=== PATIENT | female | born 1980 | race Caucasian/White ===

== ENCOUNTER 2016-07-18 17:11 | Emergency (ER) | payer OTHER ==
[~2016-07-18] VITALS: Ht 162.6 cm; Wt 94.3 kg
[2016-07-18] MEDS ORDERED: RT-ALBUINH IH (17:40)
[2016-07-18] MEDS ORDERED: ESOM20CA PO (17:40)
[2016-07-18] MEDS ORDERED: DILT120C PO (17:40)
[2016-07-18] MEDS ORDERED: BECL8.7A6 INH (17:40)
[2016-07-18] MEDS ORDERED: LIDOCAINE 1% INJ 20 ML (XYLOCAINE) VIAL INJ ONE (19:15)
[2016-07-18] MEDS ORDERED: cefTRIAXone 1 GM (ROCEPHIN) VIAL IM ONE (19:15)
[2016-07-18] MEDS ORDERED: AMOX500T2 PO (19:18)
--- NOTE | 2016-07-18 19:19 | ED General ---
General Chief Complaint: Cough/Cold/Flu Symptoms Stated Complaint: SORE THROAT/SWOLLEN GLANDS/FEVER Nursing Triage Note: Pt c/o fever,headache, muscle aches, swollen glands under jaw, nausea/lack of appetite since Tuesday (07/16). Pt reports her [id number]-[id number]-[id number] recently tested positive for mumps and she has been around her frequently. Nursing Sepsis Screen: Possible Sepsis Risk Source of Information: Patient Exam Limitations: No Limitations History of Present Illness Time Seen by Provider: 18:10 Initial Comments This 37-year-old woman presents to the emergency room with complaints of feeling ill since Tuesday. Symptoms have worsened since last night. She has fever, sore throat, myalgia, she had exposure to mumps from her [id number]-zm-lob who tested positive for mumps last week. She denies as her has had vasectomy and she is presently on her cycle. She has no evidence of parotiditis but has tender lymph nodes in the neck. Allergies and Home Medications Allergies Coded Allergies: acetaminophen (Unverified Allergy, Unknown, 07/18/16) hydrocodone (Unverified Allergy, Unknown, 07/18/16) metoclopramide (Unverified Allergy, Unknown, 07/18/16) promethazine (Unverified Allergy, Unknown, 07/18/16) tramadol (Unverified Allergy, Unknown, 07/18/16) Home Medications Albuterol Sulfate 1 Puff Puff, 2 PUFF IH Q4H PRN for WHEEZING, (Reported) 1 PUFF = 90 MCG Amoxicillin 500 Mg Tablet, 1,000 MG PO BID, #40 Prescribed by: NAKUL LYONS on 07/18/161917 Beclomethasone Dipropionate 8.7 Gm Aer.w.adap, 2 PUFF INH BID, #9 (Reported) Diltiazem HCl 120 Mg Cap.er.24h, 120 MG PO DAILY, #90 (Reported) Esomeprazole Magnesium 20 Mg Capsule.dr, 20 MG PO DAILY, (Reported) Constitutional: see HPI EENTM: see HPI Respiratory: no symptoms reported Cardiovascular: no symptoms reported Gastrointestinal: no symptoms reported Genitourinary: no symptoms reported Musculoskeletal: see HPI Skin: no symptoms reported Psychiatric/Neurological: No Symptoms Reported Hematologic/Lymphatic: No Symptoms Reported Past Zjczhjy-Cksqqo-Iqioin Hx Patient Social History Alcohol Use: Denies Use Recreational Drug Use: No Smoking Status: Never a Smoker Recent Foreign Travel: No Contact w/Someone Who Travel: No Recent Infectious Disease Expo: No Recent Hopitalizations: No Seasonal Allergies Seasonal Allergies: No Surgeries HX Surgeries: Yes (wisdom teeth) Surgeries: Adenoidectomy, Cardiac (cardiac ablation for SVT), Gallbladder, Orthopedic, Tonsillectomy Respiratory Hx Respiratory Disorders: Yes Respiratory Disorders: Asthma Cardiovascular Hx Cardiac Disorders: Yes (cardiac ablation for SVT) Neurological Hx Neurological Disorders: No Reproductive System Hx Reproductive Disorders: No Genitourinary Hx Genitourinary Disorders: No Gastrointestinal Hx Gastrointestinal Disorders: Yes (gastroparesis) Gastrointestinal Disorders: Gastroesophageal Reflux Musculoskeletal Hx Musculoskeletal Disorders: No Endocrine Hx Endocrine Disorders: No HEENT HX ENT Disorders: No Cancer Hx Cancer: No Psychosocial Hx Psychiatric Problems: No Integumentary HX Skin/Integumentary Disorder: No Blood Transfusions Hx Blood Disorders: No Physical Exam Vital Signs Vital Sign - Last 12Hours Capillary Refill : Less Than 3 Seconds General Appearance: No Apparent Distress, WD/WN, Obese HEENT: PERRL/EOMI, TMs Normal, Normal ENT Inspection, Pharyngeal Erythema (mild ) Neck: Supple, Lymphadenopathy (L), Lymphadenopathy (R), Tender Lateral Respiratory: Lungs Clear, Normal Breath Sounds, No Accessory Muscle Use, No Respiratory Distress Cardiovascular: Regular Rate, Rhythm, No Edema, No Murmur Gastrointestinal: Non Tender, Soft Extremity: Normal Inspection, No Pedal Edema Neurologic/Psychiatric: Alert, Oriented x3, No Motor/Sensory Deficits, Normal Mood/Affect, 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 Influenza screen was negative. Because of the mumps exposure, [facility] was contacted via nursing staff. Screening was obtained for mumps and patient was given precautions and instructions per [facility] guidelines. Departure Impression Impression: Primary Impression: Strep pharyngitis Additional Impression: mumps exposure Disposition: 01 HOME, SELF-CARE Condition: Improved Departure-Patient Inst. Decision time for Depature: 19:10 Referrals: NO,LOCAL PHYSICIAN (PCP/Family) Primary Care Physician Patient Instructions: Strep Throat (DC) Add. Discharge Instructions: Complete your antibiotics as prescribed. Stay well-hydrated. You may take ibuprofen up to 800 mg every 8 hours as needed and/or Tylenol up to 1000 mg every 6 hours as needed for pain and fever. Stay home and avoid contact with other people through Tuesday. Follow recommendations by KD. Return to care if symptoms worsen. All discharge instructions reviewed with patient and/or family. Voiced understanding. Scripts Amoxicillin (Amoxicillin) 500 Mg Tablet 1000 MG PO BID, #40 TAB Prov: NAKUL JONES MD 07/18/16 NAKUL JONES MD Jul 18, 2016 19:19
[2016-07-18] MEDS ORDERED: IBUPROFEN TABLET 200 MG TAB PO ONE ×2 (19:28→19:30)
[2016-07-18 19:33] VITALS: BP 123/77
--- OUTSIDE RECORDS SUMMARY | 2016-08-22 04:15 | XMS REPORT | Continuity of Care Document ---
Author Author [facility] Organization [facility] Address Unknown Phone Unavailable Care Team Providers Care Go Cart Mechanic Name Role Phone PCP Unavailable Source Comments Some departments are not documenting in the electronic medical record. If you do not see the information that you expected, contact Release of Information in the Health Information Management department at [phone] for further assistance in locating additional records.[facility] Active Allergies and Adverse Reactions Not on File Current Medications Not on file Active Problems Not on file Social History Tobacco Use Types Packs/Day Years Used Date Never Assessed Plan of Care Health Maintenance Due Date Last Done Comments Physical (Comprehensive) 1989 Exam Pertussis Vaccine 1993 Tetanus Vaccine 1999 Cervical Cancer Screening 2003 Influenza Vaccine 12/17/2016 Results from Last 3 Months Not on file
--- OUTSIDE RECORDS SUMMARY | 2016-08-22 04:15 | XMS REPORT | Continuity of Care Document ---
Author Author [facility] Address Unknown Phone Unavailable Allergies Active Description Code Type Severity Reaction Onset Reported/Identified Relationship to Patient Clinical Status Yes Benadryl Drug Allergy N/A N/A 03/03/2011 Yes Lortab Drug Allergy N/A N/A 03/03/2011 Yes Phenergan Drug Allergy N/A N/A 03/03/2011 Yes Benadryl Drug Allergy 03/03/2011 Yes Lortab Drug Allergy 03/03/2011 Yes Phenergan Drug Allergy 03/03/2011 Medications Problems Date Dx Coded Attending Type Code Diagnosis Diagnosed By 01/12/2008 599.0 URINARY TRACT INFECTION 01/12/2008 599.7 HEMATURIA 01/12/2008 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 Visit Date/Time Discharge Status Pt. Type Provider Facility Loc./Unit Complaint [id number] 03/01/2014 10:58:00 03/01/2014 23: 59:59 CLS Outpatient SHELLEY GARCIA DO [id number] 07/17/2012 09:55:00 07/17/2012 23: 59:59 CLS Outpatient
== END 2016-07-18 19:34 | disposition home or self-care (01) ==
LOC: EDUNIT# 17:11 → ER 17:14
DX: J02.0 Streptococcal pharyngitis (principal)
CPT/HCPCS: 87430; 87798; 87804; 96372; 99282

== ENCOUNTER 2017-06-11 11:27 | Emergency (ER) | payer OTHER ==
[~2017-06-11] VITALS: Ht 162.6 cm; Wt 97.1 kg
[~2017-06-11 11:27] MED LIST: AMOX500T2 PO; BECL8.7A6 INH; DILT-27 PO; ESOM20CA PO; RT-ALBUINH IH
--- NOTE | 2017-06-11 11:53 | ED Lower Extremity ---
General Chief Complaint: Lower Extremity Stated Complaint: KNOT IN GROIN, LEG TINGLING Source: patient Exam Limitations: no limitations History of Present Illness Date Seen by Provider: Jun 11, 2017 Time Seen by Provider: 11:36 Initial Comments Patient presents to ER by private conveyance with a chief complaint that yesterday evening she started experiencing some pins and needles sensation in her right leg as well as a knot in her right groin. She cannot find a knot this morning in the knot was not painful she has not taken anything for it. She is not having any nausea vomiting diarrhea discharge dysuria, abdominal pain, weakness, falls, recent history of trauma, history of back pain or back surgery or back trauma. She's had her gallbladder out but no other abdominal surgeries. She denies any recent surgery, being immobilized for any length of time, history of DVT, pulmonary embolism or family history of DVT/pulmonary embolus him. She has had a cardiac ablation for atrial fibrillation several years ago with another catheter to look again in 2012 but nothing since then. She denies any incontinence of bowel or bladder or saddle anesthesia. Allergies and Home Medications Allergies Coded Allergies: acetaminophen (Unverified Allergy, Unknown, 07/18/16) hydrocodone (Unverified Allergy, Unknown, 07/18/16) metoclopramide (Unverified Allergy, Unknown, 07/18/16) promethazine (Unverified Allergy, Unknown, 07/18/16) tramadol (Unverified Allergy, Unknown, 07/18/16) Home Medications Albuterol Sulfate 1 Puff Puff, 2 PUFF IH Q4H PRN for WHEEZING, (Reported) 1 PUFF = 90 MCG Amoxicillin 500 Mg Tablet, 1,000 MG PO BID Prescribed by: NAKUL LYONS on 07/18/161917 Beclomethasone Dipropionate 8.7 Gm Aer.w.adap, 2 PUFF INH BID, (Reported) Diltiazem HCl 120 Mg Cap.er.24h, 120 MG PO DAILY, (Reported) Esomeprazole Magnesium 20 Mg Capsule.dr, 20 MG PO DAILY, (Reported) Constitutional: No chills, No fever, No malaise EENTM: No hearing loss, No ear pain Respiratory: No cough, No phlegm Cardiovascular: No chest pain, No palpitations, No syncope Gastrointestinal: No constipation, No diarrhea Genitourinary: No discharge, No dysuria : No ( with vasectomy) Musculoskeletal: see HPI, No back pain, No joint pain, No joint swelling, No muscle pain, No muscle stiffness, No muscle cramps Skin: No pruritus, No rash Past Tvjmufo-Vxttdx-Cksotg Hx Patient Social History Alcohol Use: Denies Use Smoking Status: Never a Smoker Recent Foreign Travel: No Contact w/Someone Who Travel: No Recent Hopitalizations: No Seasonal Allergies Seasonal Allergies: No Surgeries Surgeries: Adenoidectomy, Cardiac, Gallbladder, Orthopedic, Tonsillectomy Respiratory Respiratory Disorders: Asthma Reproductive System Hx Reproductive Disorders: No Gastrointestinal Gastrointestinal Disorders: Gastroesophageal Reflux Physical Exam Vital Signs Vital Signs - First Documented 06/11/17 11:47 Temp 96.7 Pulse 103 Resp 20 B/P (MAP) 149/95 (113) Pulse Ox 100 Capillary Refill : General Appearance: WD/WN, no apparent distress HEENT: PERRL/EOMI, pharynx normal Neck: non-tender, normal inspection Cardiovascular: normal peripheral pulses, regular rate, rhythm Respiratory: no respiratory distress, no accessory muscle use Gastrointestinal: normal bowel sounds, non tender, soft, no organomegaly, No guarding, No rebound, No tenderness (negative for McBurney's point tenderness) Back: normal inspection, no CVA tenderness, no vertebral tenderness Hips: bilateral hip non-tender, bilateral hip normal inspection, bilateral hip normal range of motion, bilateral hip no evidence of injury, left hip other ( small approximately 1 cm lymph node palpable in the right femoral region.) Legs: bilateral leg non-tender, bilateral leg normal inspection, bilateral leg normal range of motion, bilateral leg no evidence of injury Knees: bilateral knee non-tender, bilateral knee normal inspection, bilateral knee normal range of motion, bilateral knee no evidence of injury Feet: bilateral foot non-tender, bilateral foot normal inspection, bilateral foot normal range of motion, bilateral foot no evidence of injury Reflexes: 2+ knee (R), 2+ knee (L) Neurologic/Tendon: normal sensation, normal motor functions, normal tendon functions, responds to pain, no evidence tendon injury Neurologic/Psychiatric: no motor/sensory deficits, alert, normal mood/affect, oriented x 3 Skin: normal color, warm/dry Comments Negative for Homans sign, calf circumference is symmetrical, no erythema, pain or knots in the calves. Progress/Results/Core Measures Results/Orders Lab Results Laboratory Tests Test 06/11/17 12:05 Range/Units White Blood Count 11.1 H 4.3-11.0 10^3/uL Red Blood Count 5.07 4.35-5.85 10^6/uL Hemoglobin 13.8 11.5-16.0 G/DL Hematocrit 41 35-52 % Mean Corpuscular Volume 81 80-99 FL Mean Corpuscular Hemoglobin 27 25-34 PG Mean Corpuscular Hemoglobin Concent 34 32-36 G/DL Red Cell Distribution Width 13.7 10.0-14.5 % Platelet Count 458 H 130-400 10^3/uL Mean Platelet Volume 9.2 7.4-10.4 FL Neutrophils (%) (Auto) 70 42-75 % Lymphocytes (%) (Auto) 23 12-44 % Monocytes (%) (Auto) 7 0-12 % Eosinophils (%) (Auto) 1 0-10 % Basophils (%) (Auto) 0 0-10 % Neutrophils # (Auto) 7.7 1.8-7.8 X 10^3 Lymphocytes # (Auto) 2.5 1.0-4.0 X 10^3 Monocytes # (Auto) 0.7 0.0-1.0 X 10^3 Eosinophils # (Auto) 0.1 0.0-0.3 10^3/uL Basophils # (Auto) 0.0 0.0-0.1 10^3/uL Erythrocyte Sedimentation Rate 9 0-20 MM/HR Sodium Level 138 135-145 MMOL/L Potassium Level 4.0 3.6-5.0 MMOL/L Chloride Level 104 98-107 MMOL/L Carbon Dioxide Level 23 21-32 MMOL/L Anion Gap 11 5-14 MMOL/L Blood Urea Nitrogen 9 7-18 MG/DL Creatinine 0.83 0.60-1.30 MG/DL Estimat Glomerular Filtration Rate > 60 BUN/Creatinine Ratio 11 Glucose Level 88 70-105 MG/DL Calcium Level 10.1 8.5-10.1 MG/DL Total Bilirubin 0.8 0.1-1.0 MG/DL Aspartate Amino Transf (AST/SGOT) 19 5-34 U/L Alanine Aminotransferase (ALT/SGPT) 18 0-55 U/L Alkaline Phosphatase 120 40-136 U/L C-Reactive Protein High Sensitivity 0.72 H 0.00-0.50 MG/DL Total Protein 8.3 H 6.4-8.2 GM/DL Albumin 4.5 3.2-4.5 GM/DL My Orders Orders - KEMAL HORTON Cbc With Automated Diff (06/11/17 11:47) Comprehensive Metabolic Panel (06/11/17 11:47) Hs C Reactive Protein (06/11/17 11:47) Erythrocyte Sedimentation Rate (06/11/17 11:47) Vital Signs/I&O Vital Sign - Last 12Hours 06/11/17 11:47 Temp 96.7 Pulse 103 Resp 20 B/P (MAP) 149/95 (113) Pulse Ox 100 Progress Note #1: Time: 11:54 Progress Note Rechecked the heart rate and it was 88. She has no evidence of DVT. D-dimer and/ or ultrasound to be contraindicated. Her symptoms sound more neurologic paresthesias. Probably some kind of local inflammatory either osteoarthritis or compressive neuropathy resulting in her low back that causing the symptoms. We have talked about doing a little blood with some CRP/ESR and if these are unremarkable we would suggest doing conservative NSAIDs, steroids and if it's not improving in 2-4 weeks following up with the primary care physician for further evaluation. There are no danger symptoms/signs at this time. With no history of trauma in the area or pain that we can focus on there is probably no benefit to doing plain films. Her abdomen is benign. Her small palpable lymph node is very nonspecific. She is not describing any kind of gynecologic discharge, dysuria etc. that might be causing a reactive lymph node. Progress Note #2: Time: 12:45 Progress Note Inflammatory markers are unremarkable. We will proceed with conservative care, prednisone and NSAIDs and follow-up with primary care physician. Departure Impression Impression: Primary Impression: Lumbar radiculopathy, right Disposition: 01 HOME, SELF-CARE Condition: Stable Departure-Patient Inst. Decision time for Depature: 12:45 Referrals: NO,LOCAL PHYSICIAN (PCP/Family) Primary Care Physician Patient Instructions: Radiculopathy (DC) Add. Discharge Instructions: The symptoms are expressing her from irritated nerve in your low spine causing the tingling sensation. Usually osteoarthritis or age-related degeneration of the spine or associated bones and soft tissue cause this. It is not dangerous by itself however if you begin to experience numbness, weakness to causing falls , loss of control your bowels or bladder or other worrisome symptoms you should follow-up sooner. Otherwise plan to take the prednisone one tablet twice a day for 5 days and the NSAIDs either ibuprofen 800 mg 3 times a day or Naprosyn 2 capsules twice a day for the next 2-4 weeks. If you're still having symptoms at the end of that you can go and talk to your doctor about what the next step in the evaluation and management of your symptoms would be. All discharge instructions reviewed with patient and/or family. Voiced understanding. Scripts Prednisone (Prednisone) 20 Mg Tab 20 MG PO BID for 5 Days, #10 TAB 0 Refills Prov: KEMAL HORTON 06/11/17 KEMAL HORTON Jun 11, 2017 11:53
[2017-06-11 12:17] LABS: BASOPHILS % (AUTO) 0 % (0-10); EOSINOPHILS # (AUTO) 0.1 10^3/uL (0.0-0.3); EOSINOPHILS % (AUTO) 1 % (0-10); HEMATOCRIT 41 % (35-52); HEMOGLOBIN 13.8 G/DL (11.5-16.0); LYMPHOCYTES # (AUTO) 2.5 X 10^3 (1.0-4.0); LYMPHOCYTES % (AUTO) 23 % (12-44); MEAN CORPUSCULAR HEMOGLOBIN 27 PG (25-34); MEAN CORPUSCULAR HGB CONC 34 G/DL (32-36); MEAN CORPUSCULAR VOLUME 81 FL (80-99); MEAN PLATELET VOLUME 9.2 FL (7.4-10.4); MONOCYTES # (AUTO) 0.7 X 10^3 (0.0-1.0); MONOCYTES % (AUTO) 7 % (0-12); NEUTROPHILS # (AUTO) 7.7 X 10^3 (1.8-7.8); NEUTROPHILS % (AUTO) 70 % (42-75); PLATELET COUNT 458 10^3/uL (130-400); RED BLOOD COUNT 5.07 10^6/uL (4.35-5.85); RED CELL DISTRIBUTION WIDTH 13.7 % (10.0-14.5); WHITE BLOOD COUNT 11.1 10^3/uL (4.3-11.0)
[2017-06-11 12:33] LABS: ALANINE AMINOTRANSFERASE 18 U/L (0-55); ALBUMIN 4.5 GM/DL (3.2-4.5); ALKALINE PHOSPHATASE 120 U/L (40-136); BILIRUBIN,TOTAL 0.8 MG/DL (0.1-1.0); BUN/CREATININE RATIO 11; CALCIUM 10.1 MG/DL (8.5-10.1); CARBON DIOXIDE 23 MMOL/L (21-32); CHLORIDE 104 MMOL/L (98-107); CREATININE SERUM 0.83 MG/DL (0.60-1.30); GFR ESTIMATED > 60; GLUCOSE 88 MG/DL (70-105); SODIUM 138 MMOL/L (135-145); TOTAL PROTEIN 8.3 GM/DL (6.4-8.2)
[2017-06-11 12:41] LABS: ERYTHROCYTE SEDIMENTATION RATE 9 MM/HR (0-20)
[2017-06-11] MEDS ORDERED: PRD20T PO (12:54)
[2017-06-11 13:01] VITALS: BP 142/87
== END 2017-06-11 13:01 | disposition home or self-care (01) ==
LOC: EDUNIT# 11:27 → ER 11:28
DX: M54.16 Radiculopathy, lumbar region (principal); K21.9 Gastro-esophageal reflux disease without esophagitis; I48.91 Unspecified atrial fibrillation; Z90.89 Acquired absence of other organs; Z88.6 Allergy status to analgesic agent; Z88.5 Allergy status to narcotic agent; Z88.8 Allergy status to other drugs, medicaments and biological substances; Z88.1 Allergy status to other antibiotic agents
CPT/HCPCS: 36415; 80053; 85025; 85652; 86141; 99283